=== PATIENT | male | born 1970 | race Two or more races ===

== ENCOUNTER 2021-05-19 10:41 | Inpatient (IN) | payer MEDICAID, OTHER ==
[~2021-05-19] VITALS: Ht 182.9 cm; Wt 90.3 kg
[2021-05-19 11:27] LABS: Basophils # (auto) 0.1 10 ^3/uL (0-0.2); Basophils % (auto) 0.6 % (0.0-2.0); Eosinophils # (auto) 0 10 ^3/uL (0-0.8); Eosinophils % (auto) 0.2 % (0.0-7.0); Hematocrit 53.4 % (41.0-53.0); Hemoglobin 17.9 g/dL (13.5-17.5); Lymphocytes % (auto) 17.9 % (10.0-50.0); Mean Corpuscular Hemoglobin 30.7 pg (28.0-32.0); Mean Corpuscular Hgb Conc. 33.6 g/dL (32.0-36.0); Mean Corpuscular Volume 91.5 fL (80.0-100.0); Monocytes # (auto) 0.7 10 ^3/uL (0-1.3); Monocytes % (auto) 6.3 % (0.0-12.0); Neutrophils # (auto) 8.2 10 ^3/uL (1.6-8.6); Nucleated Red Blood Cells % 0.2 %; Red Blood Cells 5.83 10^6/uL (4.5-5.90); Red Cell Distribution Width 14.8 % (11.8-14.3); White Blood Cell 10.9 10^3/uL (4.4-10.8)
[2021-05-19 11:47] LABS: Albumin 3.7 g/dL (3.4-5.0); Calcium 9.2 mg/dL (8.5-10.1); Magnesium 2.6 mg/dL (1.6-2.6); Potassium 4.6 mmol/L (3.5-5.1)
[2021-05-19 11:57] LABS: Total Protein 8.5 g/dL (6.4-8.2)
[2021-05-19 12:00] LABS: Bilirubin, Total 1.1 mg/dL (0.2-1.0)
[2021-05-19 12:18] LABS: BUN/Creatinine Ratio 12.2
[2021-05-19] MEDS ORDERED: ONDANSETRON HCL 4 MG/2 ML VIAL IV ONE (12:30)
[2021-05-19] MEDS ORDERED: SODIUM CHLORIDE 0.9% 1,000 ML IV ONE (12:30)
[2021-05-19] MEDS ORDERED: IOHEXOL 300 MG/ML 100ML BOTTLE IJ ONE (13:05)
[2021-05-19 13:13] LABS: Eosinophils # (auto) 0 10 ^3/uL (0-0.8); Hemoglobin 18.6 g/dL (13.5-17.5); Neutrophils # (auto) 8.4 10 ^3/uL (1.6-8.6); Nucleated Red Blood Cells % 0.1 %; White Blood Cell 11.2 10^3/uL (4.4-10.8)
[2021-05-19 13:15] LABS: Basophils # (auto) 0 10 ^3/uL (0-0.2); Basophils % (auto) 0.3 % (0.0-2.0); Eosinophils % (auto) 0.1 % (0.0-7.0); Hematocrit 55.3 % (41.0-53.0); Lactic Acid w/Reflex 2.5 mmol/L (0.4-2.0); Lymphocytes % (auto) 17.9 % (10.0-50.0); Mean Corpuscular Hemoglobin 30.6 pg (28.0-32.0); Mean Corpuscular Hgb Conc. 33.6 g/dL (32.0-36.0); Mean Corpuscular Volume 90.9 fL (80.0-100.0); Monocytes # (auto) 0.8 10 ^3/uL (0-1.3); Monocytes % (auto) 6.9 % (0.0-12.0); Neutrophils % (auto) 74.8 % (37.0-80.0); Red Blood Cells 6.09 10^6/uL (4.5-5.90); Red Cell Distribution Width 14.9 % (11.8-14.3)
[2021-05-19 15:01] LABS: Urine Bacteria NONE SEEN /hpf (None Seen); Urine Blood Negative /uL (Negative); Urine Mucus FEW (None Seen); Urine WBC <1 /hpf (0 - 3)
[2021-05-19 15:08] LABS: Urine Specific Gravity > 1.050 (1.001-1.035)
[2021-05-19] MEDS ORDERED: LACTATED RINGER'S 1,000 ML IV ONE ×2 (15:30)
[2021-05-19] MEDS ORDERED: MORPHINE SULFATE INJECTION 2 MG/ML SYRG IV PRN (15:30)
[2021-05-19] MEDS ORDERED: NITROGLYCERIN 0.4 MG SL TAB SL PRN (15:30)
[2021-05-19 15:46] LABS: CRP High Sensitivity 0.48 mg/dL (< 0.3); Cholesterol 180 mg/dL (< 200); Triglycerides 623 mg/dL (< 150)
[2021-05-19 15:49] LABS: HDL Cholesterol 47 mg/dL (40-59)
[2021-05-19 15:49] LABS: Amphetamine Screen, Urine NEGATIVE (NEGATIVE); Barbiturate Scree,Urine NEGATIVE (NEGATIVE); Benzodiazephine Screen, Urine NEGATIVE (NEGATIVE); Cannabinoid Screen, Urine NEGATIVE (NEGATIVE); Cocaine Screen, Urine NEGATIVE (NEGATIVE); Opiate Scree,Urine NEGATIVE (NEGATIVE); Phencyclidine Screen, Urine NEGATIVE (NEGATIVE)
[2021-05-19] MEDS: ONDANSETRON HCL 4 MG/2 ML VIAL IV PRN ×2 (17:57→22:00)
[2021-05-19] MEDS: MORPHINE SULFATE INJECTION 2 MG/ML SYRG IV PRN ×2 (17:58→21:37)
[2021-05-19 21:36] VITALS: BP 148/108
[2021-05-19] MEDS ORDERED: LISI2.5T47 PO (21:57)
[2021-05-19] MEDS ORDERED: PANC3600 PO (21:57)
[2021-05-19 22:00] VITALS: BP 148/108
[2021-05-20] MEDS: MORPHINE SULFATE INJECTION 2 MG/ML SYRG IV PRN ×2 (03:46→22:32)
[2021-05-20] MEDS: ONDANSETRON HCL 4 MG/2 ML VIAL IV PRN (03:46)
[2021-05-20 05:00] VITALS: BP 151/97
[2021-05-20 05:51] LABS: Basophils # (auto) 0 10 ^3/uL (0-0.2); Basophils % (auto) 0.5 % (0.0-2.0); Eosinophils # (auto) 0.1 10 ^3/uL (0-0.8); Eosinophils % (auto) 1.3 % (0.0-7.0); Hematocrit 43.4 % (41.0-53.0); Hemoglobin 14.9 g/dL (13.5-17.5); Lymphocytes # (auto) 1.4 10 ^3/uL (0.4-5.4); Lymphocytes % (auto) 18.7 % (10.0-50.0); Mean Corpuscular Hgb Conc. 34.4 g/dL (32.0-36.0); Mean Corpuscular Volume 90.2 fL (80.0-100.0); Monocytes # (auto) 0.5 10 ^3/uL (0-1.3); Monocytes % (auto) 6.7 % (0.0-12.0); Neutrophils # (auto) 5.6 10 ^3/uL (1.6-8.6); Neutrophils % (auto) 72.8 % (37.0-80.0); Red Blood Cells 4.82 10^6/uL (4.5-5.90); Red Cell Distribution Width 14.7 % (11.8-14.3); White Blood Cell 7.8 10^3/uL (4.4-10.8)
[2021-05-20 06:20] LABS: Potassium 3.6 mmol/L (3.5-5.1)
[2021-05-20 06:30] LABS: Albumin 2.8 g/dL (3.4-5.0); BUN/Creatinine Ratio 9.8; Bilirubin, Total 1.2 mg/dL (0.2-1.0); Calcium 8.3 mg/dL (8.5-10.1); Total Protein 6.6 g/dL (6.4-8.2)
[2021-05-20 09:00] VITALS: BP 140/51
[2021-05-20] MEDS ORDERED: LISINOPRIL 5 MG TAB PO ONE (09:30)
[2021-05-20] MEDS ORDERED: GEMFIBROZIL 600 MG TAB PO SCH (10:00)
[2021-05-20] MEDS ORDERED: PANTOPRAZOLE 40 MG TAB PO SCH (10:00)
[2021-05-20] MEDS: FOLIC ACID 1 MG, MULTIPLE VITAMIN 10 ML, THIAMINE INJ 100 MG in D5W 5% 1,000 ML INJ SCH (12:10)
[2021-05-20 13:00] VITALS: BP 126/93
[2021-05-20] MEDS ORDERED: SUCRALFATE 1 GM/10 ML ORAL SUSP PO ONE (14:00)
[2021-05-20] MEDS ORDERED: PANCREATIC ENZYMES 4200 UNIT CAP PO ONE ×2 (14:00→14:30)
[2021-05-20] MEDS ORDERED: MEROPENEM 1GM IVPB 100 ML IV ONE (14:00)
[2021-05-20] MEDS ORDERED: hydrALAZINE HCL 20 MG/ML VL IV PRN (14:15)
[2021-05-20 17:00] VITALS: BP 120/79
[2021-05-20] MEDS ORDERED: PANCREATIC ENZYMES 4200 UNIT CAP PO SCH (20:00)
[2021-05-20 22:00] VITALS: BP 134/90
[2021-05-20] MEDS: MEROPENEM 1GM IVPB 100 ML IV SCH (22:02)
[2021-05-20] MEDS: SUCRALFATE 1 GM/10 ML ORAL SUSP PO SCH (22:03)
[2021-05-21] MEDS: SODIUM CHLORIDE 0.9% 1,000 ML IV SCH ×2 (02:17→06:14)
[2021-05-21 05:00] VITALS: BP 130/18
[2021-05-21 05:42] LABS: Basophils # (auto) 0 10 ^3/uL (0-0.2); Basophils % (auto) 0.6 % (0.0-2.0); Eosinophils # (auto) 0.2 10 ^3/uL (0-0.8); Eosinophils % (auto) 3.2 % (0.0-7.0); Hematocrit 42.6 % (41.0-53.0); Lymphocytes % (auto) 27.2 % (10.0-50.0); Mean Corpuscular Hemoglobin 32.1 pg (28.0-32.0); Mean Corpuscular Hgb Conc. 35.3 g/dL (32.0-36.0); Monocytes # (auto) 0.6 10 ^3/uL (0-1.3); Monocytes % (auto) 8.1 % (0.0-12.0); Neutrophils # (auto) 4.6 10 ^3/uL (1.6-8.6); Neutrophils % (auto) 60.9 % (37.0-80.0); Nucleated Red Blood Cells % 0.1 %; Red Blood Cells 4.68 10^6/uL (4.5-5.90); Red Cell Distribution Width 14.8 % (11.8-14.3); White Blood Cell 7.5 10^3/uL (4.4-10.8)
[2021-05-21 06:01] LABS: Albumin 2.8 g/dL (3.4-5.0); Anion Gap 6 (5-15); Blood Urea Nitrogen 6 mg/dL (7-18); Calcium 8.2 mg/dL (8.5-10.1); Carbon Dioxide 25 mmol/L (21-32); Chloride 103 mmol/L (98-107); Glucose 112 mg/dL (74-106); INR 0.92 (0.9-1.15); Magnesium 2.4 mg/dL (1.6-2.6); Partial Thromboplastin Time 28.6 sec (23.6-33.0); Potassium 3.4 mmol/L (3.5-5.1); Sodium 134 mmol/L (136-145)
[2021-05-21 06:06] LABS: Alanine Aminotransferase 16 U/L (16-61); Alkaline Phosphatase 61 U/L (45-117); Aspartate Aminotransferase 14 U/L (15-37); Bilirubin, Total 0.8 mg/dL (0.2-1.0); GFR African American 102 mL/min; GFR Non-African American 84 mL/min; Phosphorus 2.7 mg/dL (2.5-4.90); Total Protein 7.1 g/dL (6.4-8.2)
[2021-05-21] MEDS: MEROPENEM 1GM IVPB 100 ML IV SCH ×3 (06:13→22:40)
[2021-05-21] MEDS: SUCRALFATE 1 GM/10 ML ORAL SUSP PO SCH (06:13)
[2021-05-21 09:00] VITALS: BP 130/94
[2021-05-21] MEDS ORDERED: LISINOPRIL 5 MG TAB PO SCH (10:00)
[2021-05-21] MEDS ORDERED: ENOXAPARIN SOD 40 MG/0.4 ML SYRINGE SC SCH (10:00)
[2021-05-21] MEDS ORDERED: LORazepam 2MG/ML-1ML VIAL IV PRN (11:00)
[2021-05-21] MEDS ORDERED: THIAMINE 100mg/ml INJ (200mg/2ml VIAL) IV ONE (11:00)
[2021-05-21] MEDS: SOD CHL 0.9%/ KCL 40MEQ 1,000 ML IV SCH (11:00)
[2021-05-21] MEDS: FOLIC ACID 1 MG, MULTIPLE VITAMIN 10 ML, THIAMINE INJ 100 MG in D5W 5% 1,000 ML INJ SCH (12:00)
[2021-05-21 13:00] VITALS: BP 129/89
[2021-05-21] MEDS: MORPHINE SULFATE INJECTION 2 MG/ML SYRG IV PRN ×3 (13:23→21:12)
[2021-05-21 17:00] VITALS: BP 133/91
[2021-05-21 21:36] VITALS: BP 128/88
[2021-05-22] MEDS: MORPHINE SULFATE INJECTION 2 MG/ML SYRG IV PRN ×5 (02:05→20:39)
[2021-05-22] MEDS: SOD CHL 0.9%/ KCL 40MEQ 1,000 ML IV SCH ×3 (02:07→17:00)
[2021-05-22 04:50] VITALS: BP 129/84
[2021-05-22] MEDS: MEROPENEM 1GM IVPB 100 ML IV SCH ×3 (05:39→22:15)
[2021-05-22 05:40] LABS: BUN/Creatinine Ratio 6.8; Calcium 8.6 mg/dL (8.5-10.1); Potassium 3.8 mmol/L (3.5-5.1)
[2021-05-22] MEDS ORDERED: LIDOCAINE 2%HCL (LOCAL ANESTH.) INJ 20ML MDV ONE ×2 (08:55→09:37)
[2021-05-22] MEDS ORDERED: MIDAZOLAM HCL 2MG/2ML 2ml VIAL (1mg/ml) ONE (08:57)
[2021-05-22] MEDS ORDERED: fentaNYL CITRATE 100 MCG/2 ML VL ONE (08:57)
[2021-05-22 09:30] VITALS: BP 135/75
[2021-05-22] MEDS ORDERED: THIAMINE 100mg/ml INJ (200mg/2ml VIAL) IV SCH (10:00)
[2021-05-22] MEDS: PANTOPRAZOLE 40 MG/10 ML VIAL INJ IV SCH (10:51)
[2021-05-22 13:45] VITALS: BP 125/77
[2021-05-22] MEDS: FOLIC ACID 1 MG, MULTIPLE VITAMIN 10 ML, THIAMINE INJ 100 MG in D5W 5% 1,000 ML INJ SCH (13:46)
[2021-05-22 17:12] VITALS: BP 126/85
[2021-05-22 22:00] VITALS: BP 138/88
[2021-05-23] MEDS: SOD CHL 0.9%/ KCL 40MEQ 1,000 ML IV SCH ×3 (00:07→17:59)
[2021-05-23 05:00] VITALS: BP 145/89
[2021-05-23 05:37] LABS: Basophils # (auto) 0 10 ^3/uL (0-0.2); Basophils % (auto) 0.5 % (0.0-2.0); Eosinophils # (auto) 0.2 10 ^3/uL (0-0.8); Eosinophils % (auto) 2.2 % (0.0-7.0); Hematocrit 47.7 % (41.0-53.0); Hemoglobin 16.4 g/dL (13.5-17.5); Lymphocytes # (auto) 1.8 10 ^3/uL (0.4-5.4); Lymphocytes % (auto) 26.5 % (10.0-50.0); Mean Corpuscular Hemoglobin 31.3 pg (28.0-32.0); Mean Corpuscular Hgb Conc. 34.4 g/dL (32.0-36.0); Monocytes # (auto) 0.5 10 ^3/uL (0-1.3); Monocytes % (auto) 6.9 % (0.0-12.0); Neutrophils # (auto) 4.4 10 ^3/uL (1.6-8.6); Neutrophils % (auto) 63.9 % (37.0-80.0); Nucleated Red Blood Cells % 0.1 %; Red Blood Cells 5.25 10^6/uL (4.5-5.90); Red Cell Distribution Width 14.5 % (11.8-14.3); White Blood Cell 6.9 10^3/uL (4.4-10.8)
[2021-05-23] MEDS: MEROPENEM 1GM IVPB 100 ML IV SCH (05:49)
[2021-05-23] MEDS: MORPHINE SULFATE INJECTION 2 MG/ML SYRG IV PRN ×4 (05:49→20:40)
[2021-05-23 06:01] LABS: BUN/Creatinine Ratio 9.3; Calcium 9.3 mg/dL (8.5-10.1)
[2021-05-23 09:00] VITALS: BP 137/92
[2021-05-23] MEDS: PANTOPRAZOLE 40 MG/10 ML VIAL INJ IV SCH (09:20)
[2021-05-23] MEDS: levoFLOXacin 500MG 100 ML IV SCH (10:55)
[2021-05-23] MEDS: FOLIC ACID 1 MG, MULTIPLE VITAMIN 10 ML, THIAMINE INJ 100 MG in D5W 5% 1,000 ML INJ SCH (11:54)
[2021-05-23 13:00] VITALS: BP 135/95
[2021-05-23] MEDS: metroNIDAZOLE 500MG/100ML 100 ML IV SCH ×2 (13:47→22:09)
[2021-05-23 17:00] VITALS: BP 135/95
[2021-05-23 22:00] VITALS: BP 130/79
[2021-05-24] MEDS: MORPHINE SULFATE INJECTION 2 MG/ML SYRG IV PRN ×2 (04:03→09:49)
[2021-05-24 05:00] VITALS: BP 128/86
[2021-05-24] MEDS: metroNIDAZOLE 500MG/100ML 100 ML IV SCH ×2 (05:28→14:00)
[2021-05-24 06:01] LABS: Basophils # (auto) 0.1 10 ^3/uL (0-0.2); Basophils % (auto) 0.9 % (0.0-2.0); Eosinophils # (auto) 0.1 10 ^3/uL (0-0.8); Eosinophils % (auto) 1.6 % (0.0-7.0); Hematocrit 44.4 % (41.0-53.0); Hemoglobin 15.3 g/dL (13.5-17.5); Lymphocytes # (auto) 1.6 10 ^3/uL (0.4-5.4); Lymphocytes % (auto) 23.7 % (10.0-50.0); Mean Corpuscular Hemoglobin 31.1 pg (28.0-32.0); Mean Corpuscular Hgb Conc. 34.4 g/dL (32.0-36.0); Mean Corpuscular Volume 90.5 fL (80.0-100.0); Monocytes # (auto) 0.6 10 ^3/uL (0-1.3); Monocytes % (auto) 8.7 % (0.0-12.0); Neutrophils # (auto) 4.3 10 ^3/uL (1.6-8.6); Neutrophils % (auto) 65.1 % (37.0-80.0); Nucleated Red Blood Cells % 0.1 %; Red Blood Cells 4.91 10^6/uL (4.5-5.90); Red Cell Distribution Width 14.9 % (11.8-14.3); White Blood Cell 6.6 10^3/uL (4.4-10.8)
[2021-05-24 06:28] LABS: Calcium 8.9 mg/dL (8.5-10.1); Potassium 4.3 mmol/L (3.5-5.1)
[2021-05-24 06:32] LABS: Albumin 2.8 g/dL (3.4-5.0); BUN/Creatinine Ratio 6.6
[2021-05-24 06:34] LABS: Bilirubin, Total 0.6 mg/dL (0.2-1.0); Total Protein 7.1 g/dL (6.4-8.2)
[2021-05-24 09:00] VITALS: BP 135/79
[2021-05-24] MEDS: levoFLOXacin 500MG 100 ML IV SCH (09:49)
[2021-05-24] MEDS: PANTOPRAZOLE 40 MG/10 ML VIAL INJ IV SCH (09:49)
[2021-05-24] MEDS: SOD CHL 0.9%/ KCL 40MEQ 1,000 ML IV SCH (09:51)
[2021-05-24] MEDS: FOLIC ACID 1 MG, MULTIPLE VITAMIN 10 ML, THIAMINE INJ 100 MG in D5W 5% 1,000 ML INJ SCH (12:00)
[2021-05-24 14:50] VITALS: BP 140/51
== END 2021-05-24 15:35 | disposition home or self-care (01) | DRG 282 ==
LOC: ER 10:41 → OVERFLOW 15:23 → CENTRAL 19:43
PROVIDERS: ADMIT Nurse Practitioner Acute Care; ATTEND Internal Medicine
PROC: 0F9G3ZZ Drainage of Pancreas, Percutaneous Approach (ICD-10-PCS; principal; 2021-05-22)
DX: K85.20 Alcohol induced acute pancreatitis without necrosis or infection (principal); E87.2 Acidosis; K86.3 Pseudocyst of pancreas; K86.0 Alcohol-induced chronic pancreatitis; E87.1 Hypo-osmolality and hyponatremia; E78.1 Pure hyperglyceridemia; I10 Essential (primary) hypertension; D72.829 Elevated white blood cell count, unspecified; Y90.0 Blood alcohol level of less than 20 mg/100 ml; F12.10 Cannabis abuse, uncomplicated; F10.10 Alcohol abuse, uncomplicated; Z20.822 Contact with and (suspected) exposure to COVID-19; F17.200 Nicotine dependence, unspecified, uncomplicated; K86.1 Other chronic pancreatitis; Z88.0 Allergy status to penicillin; Z88.1 Allergy status to other antibiotic agents; Z71.6 Tobacco abuse counseling; Z71.41 Alcohol abuse counseling and surveillance of alcoholic
CPT/HCPCS: 10022; 36415; 74150; 74177; 77012; 80048; 80053; 80061; 80307; 81001; 83036; 83605; 83690; 83735; 83880; 84100; 84443; 84478; 84484; 85025; 85610; 85730; 86141; 87040; 87086; 87205; 87426; 96361; 96374; C1729; C9113; G0378; J1956; J2185; J2250; J2405; J3490